=== PATIENT | male | born 1965 | race Caucasian/White ===

== ENCOUNTER 2024-09-08 04:35 | Emergency (ER) | payer BC, SELFPAY ==
[2024-09-08 04:49] VITALS: BP 112/72
[2024-09-08 05:25] LABS: ALT (SGPT) 33 U/L (0-50); AST (SGOT) 24 U/L (17-59); Albumin 4.7 g/dl (3.5-5.0); Alkaline Phosphatase 38 U/L (38-126); Blood Urea Nitrogen 20 mg/dl (9-20); Calcium 9.6 mg/dl (8.4-10.2); Carbon Dioxide 24 mmol/L (22-30); Chloride 99 mmol/L (98-107); Glucose 125 mg/dl (70-99); Potassium 4.6 mmol/L (3.5-5.1); Sodium 135 mmol/L (135-145); Total Bilirubin 0.6 mg/dl (0.2-1.3); Total Protein 7.2 g/dl (6.3-8.2); Urine Albumin Negative (Neg - Trace); Urine Bilirubin Negative (Negative); Urine Character Clear (Clear); Urine Color Yellow; Urine Glucose Negative (Negative); Urine Ketone Negative (Negative); Urine Leukocyte Negative (Negative); Urine Nitrite Negative (Negative); Urine Occult Blood Negative (Negative); Urine Specific Gravity 1.015 (<1.030); Urine Urobilinogen Negative (Neg - 1+); eGFR > 60.00
[2024-09-08 05:27] LABS: % Basophils 0.6 % (0-2); % Eosinophils 1.2 % (0-6); % Immature Granulocytes 0.2 % (0-0.5); % Lymphocytes 11.2 % (20.5-51.1); % Monocytes 7.9 % (1.7-9.3); % Neutrophils 78.9 % (42.2-75.2); Absolute Basophils 0.1 10^3/uL (0-0.2); Absolute Eosinophils 0.2 10^3/uL (0-0.7); Absolute Lymphocytes 1.4 10^3/uL (1.2-3.4); Absolute Neutrophils 9.7 10^3/uL (1.4-6.5); Hemoglobin 14.6 g/dL (13.0-18.0); Mean Corpuscular Hgb 28.7 pg (27.0-31.0); Mean Corpuscular Volume 84.5 fL (80.0-94.0); Mean Platelet Volume 10.3 fL (7.4-10.4); Nucleated Red Blood Cells % 0 % (-); Platelet Count 212 10^3/uL (130-400); Red Blood Cell Count 5.09 10^6/uL (4.70-6.10); Red Cell Dist. Width 13.7 % (11.5-14.5); White Blood Cell Count 12.3 10^3/uL (4.8-10.8)
--- NOTE | 2024-09-08 08:57 | EDRN ---
This RN assumed care of this pt at this time.
--- NOTE | 2024-09-08 09:01 | ED.GENMED ---
History of Present Illness
General
Chief Complaint: Urinary Symptoms
Source: patient
Exam Limitations: none
Time Seen by Provider: 09/08/24 08:50
Nursing documentation reviewed up to this point in time: agreed with
History of Present Illness
History of Present Illness:
58-year-old male history of renal stone followed by Dr. Fay never requiring intervention apparently presents with lower abdominal cramping constipation somewhat reminiscent of his stone no fever no chills no vomiting no hematuria came in early
in the morning so I saw him he is actually feeling much better, tells me the Dr. Fay told him to get an x-ray of his pain would have her come back, he has no testicular pain, no back pain really without complaints at this time
Past History
Past History
ED Past Medical History: Hypercholesterolemia and Other (Ureteral stone)
ED Past Surgical History: None
Social History
Tobacco: Non-smoker
Alcohol: None
Drug: None
Personal:
Living: with family
Employment: Employed
Review of Systems
Review of Systems
All Other Systems: Not applicable
Constitutional: Denies fever or fatigue
EENT: Reports no symptoms
Respiratory: Reports no symptoms
Cardiac: Reports no symptoms
ABD/GI: Reports abdominal pain (Improved) and constipated (Improved); Denies anorexia
: Reports no symptoms; Denies dysuria, flank pain, urgency or bleeding
Musculoskeletal: Reports no symptoms
Neurological: Reports no symptoms
Endocrine: Reports no symptoms
Phy Exam
Physical Exam
Physical Exam:
Physical Exam
General: no apparent distress, not acutely ill
Neck: No jaw
Heart: Regular
Lungs: no acute respiratory distress. clear bilaterally
Abdomen: Soft nontender no guarding or rebound no CVA tender
Neuro: alert and oriented. no focal neurological deficits
Skin: no rash
Psychiatric: well kept. interactive and cooperative
Extremities: no edema.
Course
Orders/Labs/Results
Orders:
Orders
09/08/24 04:54
Complete Blood Count/With Diff Urgent
Comprehensive Metabolic Panel Urgent
Urinalysis Urgent
Date Specimen was Collected: 09/08/24
Time Specimen was Collected: 04:43
09/08/24 08:56
Abdomen Xray - 1 View [CR Abdomen - 1 View] Urgent
Comment:
Reason For Exam: pain kidney stone
Abnormal Lab Results
09/08/24
04:54
WBC 12.3 H 10^3/uL
(4.8-10.8)
Absolute Neuts (auto) 9.7 H 10^3/uL
(1.4-6.5)
Absolute Monos (auto) 1.0 H 10^3/uL
(0.1-0.6)
Neutrophils % 78.9 H %
(42.2-75.2)
Lymphocytes % 11.2 L %
(20.5-51.1)
Glucose 125 H mg/dl
(70-99)
09/08/24 04:54
09/08/24 04:54
Vital Signs
Initial and Last Documented VS:
Initial Vital Signs
Temp Pulse BP Pulse Ox
98.2 F 76 112/72 96
09/08/24 04:49 09/08/24 04:49 09/08/24 04:49 09/08/24 04:49
Last Documented Vital Signs
Temp Pulse Resp BP Pulse Ox
98.2 F 65 16 155/68 99
09/08/24 04:49 09/08/24 09:03 09/08/24 09:03 09/08/24 09:03 09/08/24 09:03
MDM/Problems Addressed
Differential Diagnosis Includes:
Nonspecific abdominal pain passed renal stone constipation doubt appendicitis or cholecystitis
MDM/Problems Addressed:
Abdominal pain improved
Chronic conditions affecting care:
Ureteral stone
*Radiology
Radiology exam reviewed: preliminary read by ED provider
*Pulse Oximetry
Patient hypoxic: no
*Critical Care Note
Total Time (30-74mins, 75-104mins- exclusive of procedures): Not Applicable
Update Note
Update Note:
Update patient seen here few hours she is now without complaints specifically no abdominal pain no nausea vomiting hematuria will check a screening x-ray, as he was told to get this by his urologist, my suspicion for obstructing renal stone is very
low or any pathology
Update x-ray noted no pathology formal report
ED Attending Note
-
Portions of this chart may have been created with voice recognition software.� Occasional wrong word or��sound alike� substitutions may have occurred due to the inherent limitations of voice recognition software.
Discharge Plan
Departure
Patient Disposition: Home (Routine Discharge)
Date of Disposition: 09/08/24
Time of Disposition: 09:35
Patient with high blood pressure during this ER visit?: No
Condition: Good
Discharge Problem:
Abdominal pain
Instructions: Abdominal pain in adults - ED discharge instructions
Prescriptions:
No Action
multivitamin [Daily Multi-Vitamin] 1 EACH tablet
1 ea PO DAILY
naproxen sodium [Aleve] 220 MG tablet
220 mg PO PRN PRN (Reason: pain)
Cranberry
1 tab PO DAILY
Vitamin D
1 tab PO DAILY
oxycodone-acetaminophen 5 MG/325 MG tablet
2 tab PO Q6HPRN PRN (Reason: severe pain) Qty: 14 0RF
Rx Instructions:
DO NOT TAKE WHILE DRIVING OR BATHING ALONE!
ondansetron HCl 4 MG tablet
4 mg PO Q8HPRN PRN (Reason: nausea) Qty: 20 0RF
Referrals:
Nuzhat,Tan J., DO [Family Provider] - Follow up in 2-3 days
Activity Restrictions/Additional Instructions:
Monitor your symptoms at home if your pain worsens you get blood in your urine fevers nausea vomiting return to the ER
Interventions
Interventions:
*Risk Screen - Suicide Last Done: 09/08/24 04:41
*General Assessment Last Done: 09/08/24 09:03
*Neglect/Abuse Screening Last Done: 09/08/24 04:41
ED- Fall Risk Assessment Last Done: 09/08/24 09:03
*ED COVID-19 Vaccine History Last Done: 09/08/24 09:03
ED-Male Genitourinary Assessment Last Done: 09/08/24 09:07
Discharge Date and Time
Print Language: LAO
[2024-09-08 09:03] VITALS: BP 155/68; BMI 25.5
[2024-09-08 10:05] VITALS: BP 133/78
== END 2024-09-08 10:05 | disposition home or self-care (01) ==
LOC: EMR 04:35
PROVIDERS: Emergency Medicine; EMERGENCY PHYSICIAN Emergency Medicine; FAMILY PHYSICIAN Family Medicine
DX: R10.30 Lower abdominal pain, unspecified (principal)
CPT/HCPCS: 99284; 74018; 80053; 81003; 85025

== ENCOUNTER → 2025-04-14 08:34 | Outpatient (REF) | payer BC, SELFPAY | LOC: RAD 08:34 | PROVIDERS: ATTENDING PHYSICIAN Family Medicine | DX: K90.0 Celiac disease (principal); Z13.820 Encounter for screening for osteoporosis | CPT/HCPCS: 77080 ==

== ENCOUNTER 2025-07-02 06:25 | Day surgery (SDC) | payer BC, SELFPAY | END 2025-07-02 10:55 | disposition home or self-care (01) | LOC: GI 06:25 | PROVIDERS: ATTENDING PHYSICIAN Internal Medicine Gastroenterology | DX: Z12.11 Encounter for screening for malignant neoplasm of colon (principal); K64.8 Other hemorrhoids; K57.30 Diverticulosis of large intestine without perforation or abscess without bleeding; Z86.0100 Personal history of colon polyps, unspecified | CPT/HCPCS: G0105 ==

== ENCOUNTER → 2025-08-02 08:08 | Outpatient (REF) | payer BC, SELFPAY | LOC: HWRAD 08:08 | PROVIDERS: ATTENDING PHYSICIAN Family Medicine | DX: Z13.6 Encounter for screening for cardiovascular disorders (principal) | CPT/HCPCS: 75571 ==